=== PATIENT | female | born 1985 | race Caucasian/White ===

== ENCOUNTER 2017-03-25 18:54 | Emergency (ER) | payer BC, OTHER ==
--- NOTE | ~2017-03-25 | EKG ---
PATIENT: MYA DE PAZ UNIT #: [id number] Ventricular Rate: 75 BPM Atrial Rate: 75 BPM P-R Interval: 150 ms QRS Duration: 84 ms Q-T Interval: 372 ms QTC Calculation(Bezet): 415 ms P [place]: 81 degrees Calculated R [place]: 35 degrees Calculated T [place]: 22 degrees Diagnosis Line: Normal sinus rhythm Diagnosis Line: Normal ECG Diagnosis Line: When compared with ECG of 14-OCT-2016 16:52, Diagnosis Line: No significant change was found Diagnosis Line: Confirmed by SIERRA POND MD ([id number]) on Diagnosis Line: 03/26/2017 11:14:00 PM INTERPRETING : MARY
--- NOTE | ~2017-03-25 | CT71 ---
[facility] A Service [facility] RADIOLOGY TEXT RESULTS PATIENT: MYA DE PAZ LOCATION: [facility] : 89 UNIT #: [id number] AGE: [address]: Taz Alonso MD SEX: F ORDER DR: [id number] [facility] [address] [place], [place] [address] [id number] MR#: [id number] Acc #: [id number] NAME: MYA DE PAZ : 1985 SEX: F STUDY DATE/TIME: 03/25/2017 20:49 UNIT: [facility] ROOM: STUDY DESCRIPTION: CT Head Wo Contrast Attending Physician: Taz Alonso M.D. Ordering Physician: Taz Alonso M.D. Primary Care Physician: Maria Fernanda Miller Aprn MEDICAL IMAGING REPORT This report is preliminary unless electronic signature is present EXAM Head CT without contrast. HISTORY Headache and hypertension for the past day. TECHNIQUE Axial images were obtained without contrast. This CT exam was performed with one or more of the following radiation dose reduction techniques: automatic exposure control, adjustment of mA and/or kV according to patient size, and iterative reconstruction. FINDINGS Axial noncontrast images were obtained from the skull base to the vertex. Ventricular size and configuration are normal. There is no evidence of acute infarct or hemorrhage. There are no extra-axial fluid collections. No mass lesion or mass effect is seen. There are no skull fractures. IMPRESSION Normal noncontrast head CT. Dictated by... Hussein Moody M.D. THIS IS AN ELECTRONICALLY VERIFIED REPORT Hussein Moody M.D. at 03/25/2017 10:23 PM REYNOLDF/sourav TD: 03/25/2017 21:31 [facility] A Service [facility] RADIOLOGY TEXT RESULTS PATIENT: MYA DE PAZ LOCATION: [facility] : 89 UNIT #: [id number] AGE: [address]: Taz Alonso MD SEX: F ORDER DR: YFN #: [id number] MEDICAL IMAGING REPORT Page 1 of 1 COPY
[~2017-03-25 18:54] MED LIST: ATARAX PO; BACTRIM DS TABL1 TAB PO; HYDROXYZINE HCL10 MG PO; KEFLEX PO; LABETALOL HCL200 MG PO; NORCO 5/325 TAB1 TAB PO; OMEPRAZOLE40 M1 PO; PROZAC PO; ZANTAC150 MG PO; ZOLOFT PO
== END 2017-03-25 21:32 | disposition home or self-care (01) ==
LOC: CED 18:54
DX: I16.0 Hypertensive urgency (principal); I10 Essential (primary) hypertension; Z90.49 Acquired absence of other specified parts of digestive tract; Z98.51 Tubal ligation status
CPT/HCPCS: 70450; 84703; 93005; 99284